=== PATIENT | female | born 1960 | race Caucasian/White ===

== ENCOUNTER 2017-07-01 15:09 | Emergency (ER) | payer MEDICARE, MEDICAID ==
[~2017-07-01] VITALS: Ht 162.6 cm; Wt 75.0 kg
[~2017-07-01 15:09] MED LIST: ADVAIR INHALER; CARBAMAZEPINE; FERROUS SULFATE; IBUPROFEN; LEVOTHYROXINE; PROAIR INHALER; QUETIAPINE; RESTORIL; SEROQUEL; TEGRETOL; TEMAZEPAM
[2017-07-01] MEDS ORDERED: IBUPROFEN 600MG TABLET PO ONE (18:45)
[2017-07-01 18:51] VITALS: BP 119/81
== END 2017-07-01 20:33 | disposition home or self-care (01) ==
LOC: ER 18:35
DX: S93.601A Unspecified sprain of right foot, initial encounter (principal); H10.9 Unspecified conjunctivitis; F17.210 Nicotine dependence, cigarettes, uncomplicated; J45.909 Unspecified asthma, uncomplicated; W01.0XXA Fall on same level from slipping, tripping and stumbling without subsequent striking against object, initial encounter; Y93.89 Activity, other specified; Y92.89 Other specified places as the place of occurrence of the external cause; Y99.8 Other external cause status
CPT/HCPCS: 73630; 99284